=== PATIENT | female | born 1935 | race Caucasian/White ===

== ENCOUNTER 2019-02-26 22:09 | Inpatient (IN) | payer MEDICARE, OTHER ==
[~2019-02-26] VITALS: Ht 167.6 cm; Wt 61.5 kg
--- NOTE | 2019-02-26 22:33 | NUR ---
STROKE [facility] NUMBER [id number].
[2019-02-26 22:45] VITALS: BP 127/62
[2019-02-26 22:58] LABS: CREATINE KINASE 131 UL (21-215); TROPONIN-I < 0.017 ng/mL (0.000-0.060)
[2019-02-26 23:00] VITALS: BP 152/65
[2019-02-26 23:15] VITALS: BP 142/66
[2019-02-26 23:30] VITALS: BP 169/72
--- NOTE | 2019-02-26 23:44 | NUR ---
TITRATED PROPOFOL TO EFFECT AT 15MCG
[2019-02-27] VITALS (23 sets, daily range): BP systolic 103–157; BP diastolic 51–79; Ht 167.6 cm; Wt 61.5 kg
--- NOTE | 2019-02-27 00:20 | NUR ---
PT RECEIVED FROM ER. VSS. REFER TO ASSESSMENT. FAMILY AT BEDSIDE GIVEN UDPATE.
[2019-02-27] MEDS ORDERED: TRILEPTAL600 MG PO (00:21)
[2019-02-27] MEDS ORDERED: TIMOPTIC 0.5 % O5 ML EACH EYE (00:21)
[2019-02-27] MEDS ORDERED: PHENERGAN6.25 MG/5 (00:23)
[2019-02-27] MEDS ORDERED: PROMETH-CODEIN 65 ML PO (00:24)
--- NOTE | 2019-02-27 01:58 | NUR ---
JEREMY CANTRELL AT BEDSIDE NEW ORDERS RECEIVED
--- NOTE | 2019-02-27 03:15 | NUR ---
REASSESSMENT COMELPTE PER FLOW SHEET. VSS. NO NEW CHANGES PT RESTING COMFORTABLY WILL CONTINUE TO MONITOR
[2019-02-27 04:24] LABS: BASOPHILS 0 % (0-2); EOSINOPHILS 0 % (0-7); HEMATOCRIT 41.1 % (36.0-48.0); IMMATURE GRANULOCYTES 0.2 % (0-5); LYMPHOCYTES 6.8 % (15-50); MCH 31.5 pg (26.0-34.0); MCHC 34.1 g/dL (31.0-37.0); MCV 92.6 fL (80.0-100.0); MEAN PLATELET VOLUME 10.5 fL (7.4-10.4); MONOCYTES 3.9 % (2-11); NEUTROPHILS 89.1 % (40-80); PLATELET COUNT 249 10x3/uL (130-400); RBC 4.44 10x6/uL (4.00-5.40); WBC 8.7 10x3/uL (4.8-10.8)
[2019-02-27 04:30] LABS: APTT 25.4 SECONDS (22.8-39.4); INR 1.06 (0.85-1.17); PROTIME 13.3 SECONDS (11.6-15.0)
--- NOTE | 2019-02-27 05:00 | NUR ---
NO NEW CHANGES. PT RESTING COMFORTABLY WLL CONTINUE TO MONITOR
[2019-02-27 05:04] LABS: CALC OSMOLALITY 271 mosm/kg (275-300); CALCIUM 8.7 mg/dL (8.5-10.1); CARBON DIOXIDE 25.6 mmol/L (21.0-32.0); CHLORIDE - SERUM 95 mmol/L (98-107); CKMB 1.2 U/L (0.0-3.6); CREATINE KINASE 107 UL (21-215); GLUCOSE 252 mg/dL (74-106); MAGNESIUM - SERUM 1.8 mg/dL (1.8-2.4); PHENYTOIN (DILANTIN) 14.3 ug/mL (10.0-20.0); PHOSPHOROUS 3.6 mg/dL (2.5-4.9); POTASSIUM - SERUM 3.4 mmol/L (3.5-5.1); SODIUM 131 mmol/L (136-145); UREA NITROGEN 13 mg/dL (7-18); eGFR NON AFRICAN AMERICAN 56 mL/min (90-120)
[2019-02-27 05:09] LABS: TROPONIN-I < 0.017 ng/mL (0.000-0.060)
--- NOTE | 2019-02-27 07:00 | NUR ---
PT RESTING IN BED, PT UNRESPONSIVE. PT HAS DECORTICATE POSTURING. RIGHT PUPIL FIXED AT 3MM, LEFT PUPIL FIXED AT 7MM. PT HAS A GAG REFLEX STILL BUT MILD. BED ALARM ON. WILL CONT TO FOLLOW POC
--- NOTE | 2019-02-27 08:40 | NUR ---
HERE AND SPOKE WITH FAMILY. FAMILY IS ACCEPTING. DENIES ANY NEEDS AT THIS TIME. PT RESTING COMFORTABLE IN BED. BED ALARM ON. WILL CONT TO FOLLOW POC
--- NOTE | 2019-02-27 10:40 | NUR ---
PT RESTING IN BED, VSS AND WNL. FAMILY AT BEDSIDE. NO NEURO CHANGES NOTED. WILL CONT TO FOLLOW POC
--- NOTE | 2019-02-27 12:40 | NUR ---
PT RESTING IN BED, VSS AND WNL. FAMILY AT BEDSIDE, NO NEURO CHANGES NOTED. WILL CONT TO FOLLOW POC
--- NOTE | 2019-02-27 14:32 | NUR ---
PT FAMILY HERE AND STATES THEY WOULD LIKE PT TO BE EXTUBATED. SPOKE WITH KENZIE AND NURSE WAS ADVISED THAT PT DOES NOT MEET CRITERIA FOR LIVE DONATION AND TO CALL BACK ONCE PT HAS . NURSE PAGED AND NEW ORDER GIVEN FOR MORPHINE AND OK TO TERMINALLY EXTUBATE
--- NOTE | 2019-02-27 14:40 | NUR ---
FAMILY AT BEDSIDE DISCUSSING TERMINAL EXTUBATION. WILL CONT TO FOLLOW POC
--- NOTE | 2019-02-27 14:41 | NUR ---
DNR ORDER PLACED INTO COMPUTER AND NOTIFIED.
--- NOTE | 2019-02-27 15:03 | NUR ---
PT TERMINALLY EXTUBATED AT 1503. FAMILY AT BEDSIDE.
--- NOTE | 2019-02-27 16:45 | NUR ---
SPOKE WITH AND NEW ORDER GIVEN TO TRANSFER PT TO FLOOR.
--- NOTE | 2019-02-27 16:54 | NUR ---
REPORT CALLED TO ALANA EPPS ON MED SURG
--- NOTE | 2019-02-27 17:55 | NUR ---
TRANSFERRED FROM ICU TO ROOM 2231 PT REMAIN UNRESPONSIVE. NO PAIN NOTED. FAMILY ONLY WANT COMFORT CARE MEASURE ONLY. C/L AND SON AT BEDSIDE.
[2019-02-28 01:21] VITALS: BP 170/88
--- NOTE | 2019-02-28 03:30 | NUR ---
I have reviewed this patient and I concur with the Shift Assessment completed by the Licensed Practical Nurse today this shift.
[2019-02-28 05:06] VITALS: BP 189/91
[2019-02-28 05:38] LABS: BASOPHILS 0 % (0-2); EOSINOPHILS 0 % (0-7); HEMATOCRIT 39.4 % (36.0-48.0); HEMOGLOBIN 13.1 g/dL (12-16); IMMATURE GRANULOCYTES 0.2 % (0-5); LYMPHOCYTES 6.9 % (15-50); MCH 31.2 pg (26.0-34.0); MCHC 33.2 g/dL (31.0-37.0); MCV 93.8 fL (80.0-100.0); MEAN PLATELET VOLUME 10.6 fL (7.4-10.4); MONOCYTES 12.9 % (2-11); PLATELET COUNT 266 10x3/uL (130-400); RDW 13.5 % (11.5-14.5)
[2019-02-28 06:11] LABS: CALCIUM 8.7 mg/dL (8.5-10.1); CARBON DIOXIDE 24.4 mmol/L (21.0-32.0); CHLORIDE - SERUM 102 mmol/L (98-107); MAGNESIUM - SERUM 1.7 mg/dL (1.8-2.4); POTASSIUM - SERUM 3.4 mmol/L (3.5-5.1); SODIUM 139 mmol/L (136-145); eGFR NON AFRICAN AMERICAN 85 mL/min (90-120)
[2019-02-28 06:54] LABS: CALC OSMOLALITY 281 mosm/kg (275-300); CREATININE - SERUM 0.7 mg/dL (0.6-1.3); GLUCOSE 139 mg/dL (74-106); PHOSPHOROUS 2.4 mg/dL (2.5-4.9); UREA NITROGEN 17 mg/dL (7-18)
[2019-02-28 08:20] VITALS: BP 160/95
--- NOTE | 2019-02-28 08:27 | NUR ---
RESTING IN BED, FAMILY IN ROOM, EYES CLOSED, NO DISTRESS NOTED TELE IN PLACE
--- NOTE | 2019-02-28 09:00 | MORECARE ---
CASE MANAGEMENT DISCHARGE SUMMARY PATIENT: WENDY RAMÍREZ UNIT: [id number] ADM DATE: 02/26/19 AGE: 84 : 36 SEX: F ROOM/BED: D.2231 AUTHOR: NORMA REYEZ PHYSICIAN: REFERRING PHYSICIAN: MARTIN BERRY MD DATE OF SERVICE: 02/28/19 Discharge Plan Patient Name: WENDY RAMÍREZ [facility] [facility] 1935 Planned Disposition: Anticipated Discharge Date: Discharge Date: Expected LOS: Initial Reviewer: [email or web address] Initial Review Date: 02/27/2019 Generated: 02/28/19 10:00 am DCPIA - Discharge Planning Initial Assessment Updated by [email or web address]: Bijal Ferreira on 02/28/19 8:58 am * Is the patient Alert and Oriented? No * How many steps to enter\exit or inside your home? 1-2 * PCP MEGHA RUEDA * [facility] * Preadmission Environment Home Alone * ADLs Independent * Equipment None * List name and contact numbers for known caregivers / representatives who currently or will assist patient after discharge: CHRISTY STAR [phone], * Verbal permission to speak to the caregivers and representatives has been obtained from the patient. N/A * Community resources currently utilized None * Additional services required to return to the preadmission environment? No * Can the patient safely return to the preadmission environment? Yes * Has this patient been hospitalized within the prior 30 days at any hospital? No Patient Name: WENDY RAMÍREZ Page [id number] at 0900 All edits/amendments must be made on the electronic document DICTATION DATE: 02/28/19899 MERCHANDISE SUPPORT ASSOCIATE: SABRINA 02/28/19899 RPT#: [id number] DC DATE: STATUS: ADM IN [facility] [address] [place] [address] END OF REPORT
--- NOTE | 2019-02-28 09:08 | MORECARE ---
CASE MANAGEMENT DISCHARGE SUMMARY PATIENT: WENDY RAMÍREZ UNIT: [id number] ADM DATE: 02/26/19 AGE: 84 : 36 SEX: F ROOM/BED: D.2231 AUTHOR: AISSATOUDOC PHYSICIAN: REFERRING PHYSICIAN: MARTIN BERRY MD DATE OF SERVICE: 02/28/19 Discharge Plan Patient Name: WENDY RAMÍREZ Facility: [facility]:[place] : 1935 Planned Disposition: Anticipated Discharge Date: Discharge Date: Expected LOS: Initial Reviewer: [email or web address] Initial Review Date: 02/27/2019 Generated: 02/28/19 10:07 am Comments DCP- Discharge Planning Updated by [email or web address]: Bijal Ferreira on 02/28/19 8:[address] LATE ENTRY 02/27/19 Patient Name: WENDY RAMÍREZ Admission Status: ER Accout number: [id number] Admission Date: 02-26-2019 : 1935 Admission Diagnosis: Attending: MARTIN TAVRAEZ Current LOS: 2 Anticipated DC Date: Planned Disposition: Primary Insurance: MEDICARE A & B Discharge Planning Comments: CM met with patient's daughter Senait to complete initial dc planning assessment. CM educated patient on the CM role and verbal consent given by patient to complete assessment. Patient lives at home alone where she is independent with her care. Senait stated that once all family arrives they are planning terminal extubation. CM will continue to follow and will assist as needed with dc plans/needs. Lease Picker: Bijal Ferreira DCPIA - Discharge Planning Initial Assessment Updated by [email or web address]: Bijal Ferreira on 02/28/19 8:58 am * Is the patient Alert and Oriented? No * How many steps to enter\exit or inside your home? 1-2 * PCP MEGHA RUEDA * [facility] * Preadmission Environment Home Alone * ADLs Independent * Equipment None * List name and contact numbers for known caregivers / representatives who currently or will assist patient after discharge: SENAIT STAR [phone], * Verbal permission to speak to the caregivers and representatives has been obtained from the patient. N/A * Community resources currently utilized None * Additional services required to return to the preadmission environment? No * Can the patient safely return to the preadmission environment? Yes * Has this patient been hospitalized within the prior 30 days at any hospital? No Last DP export: 02/28/19 8:00 Patient Name: WENDY RAMÍREZ Page [id number] at 0908 All edits/amendments must be made on the electronic document DICTATION DATE: 02/28/19906 SERVICE OPERATOR: SABRINA 02/28/19906 RPT#: [id number] DC DATE: STATUS: ADM IN [facility] [address] [place] [address] END OF REPORT
[2019-02-28 13:41] VITALS: BP 145/91
--- NOTE | 2019-02-28 15:39 | MORECARE ---
CASE MANAGEMENT DISCHARGE SUMMARY PATIENT: WENDY GONZALEZ UNIT: [id number] ADM DATE: 02/26/19 AGE: 84 : 36 SEX: F ROOM/BED: D.2231 AUTHOR: NORMA REYEZ PHYSICIAN: REFERRING PHYSICIAN: MARTIN BERRY MD DATE OF SERVICE: 02/28/19 Discharge Plan Patient Name: WENDY GONZALEZ Facility: [facility]:[place] : 1935 Planned Disposition: Anticipated Discharge Date: Discharge Date: Expected LOS: Initial Reviewer: [email or web address] Initial Review Date: 02/27/2019 Generated: 02/28/19 4:38 pm Comments DCP- Discharge Planning Updated by [email or web address]: Chloe Marie on 02/28/19 2:[address] CM met with patient's son, Herminio Gonzalez, in the room to discuss hospice. He states that he and his siblings were discussing hospice and they weren't sure what they needed. I gave him a list of hospice agencies and informed him that [facility] had a contract with [facility] if she met inpatient criteria and they wanted her to stay here. He states that if she only has a few days left, he would like her to stay here otherwise he would like to see if she could go back to [place]. I offered to call any hospice agency to speak with him and he would like to discuss the options with his siblings first. CM will continue to follow and assist with discharge planning/needs. Herminio Gonzalez - [phone] DCP- Discharge Planning Updated by [email or web address]: Bijal Ferreira on 02/28/19 8:[address] LATE ENTRY 02/27/19 Patient Name: WENDY GONZALEZ Admission Status: ER Accout number: [id number] Admission Date: 02-26-2019 : 1935 Admission Diagnosis: Attending: MARTIN TAVAREZ Current LOS: 2 Anticipated DC Date: Planned Disposition: Primary Insurance: MEDICARE A & B Discharge Planning Comments: CM met with patient's daughter Senait to complete initial dc planning assessment. CM educated patient on the CM role and verbal consent given by patient to complete assessment. Patient lives at home alone where she is independent with her care. Senait stated that once all family arrives they are planning terminal extubation. CM will continue to follow and will assist as needed with dc plans/needs. Foreign Banknote Teller Trader: Bijal Ferreira DCPIA - Discharge Planning Initial Assessment Updated by [email or web address]: Bijal Ferreira on 02/28/19 8:58 am * Is the patient Alert and Oriented? No * How many steps to enter\exit or inside your home? 1-2 * PCP MEGHA RUEDA * [facility] * Preadmission Environment Home Alone * ADLs Independent * Equipment None * List name and contact numbers for known caregivers / representatives who currently or will assist patient after discharge: SENAIT GRAVES - [phone], * Verbal permission to speak to the caregivers and representatives has been obtained from the patient. N/A * Community resources currently utilized None * Additional services required to return to the preadmission environment? No * Can the patient safely return to the preadmission environment? Yes * Has this patient been hospitalized within the prior 30 days at any hospital? No Last DP export: 02/28/19 8:08 Patient Name: WENDY GONZALEZ Page [id number] at 1539 All edits/amendments must be made on the electronic document DICTATION DATE: 02/28/191537 DISTILLING DEPARTMENT SUPERVISOR: SABRINA 02/28/191537 RPT#: [id number] DC DATE: STATUS: ADM IN [facility] [address] [place] [address] END OF REPORT
[2019-02-28 17:14] VITALS: BP 138/95
--- NOTE | 2019-02-28 17:23 | MORECARE ---
CASE MANAGEMENT DISCHARGE SUMMARY PATIENT: WENDY GONZALEZ UNIT: [id number] ADM DATE: 02/26/19 AGE: 84 : 36 SEX: F ROOM/BED: D.2231 AUTHOR: NORMA REYEZ PHYSICIAN: REFERRING PHYSICIAN: MARTIN BERRY MD DATE OF SERVICE: 02/28/19 Discharge Plan Patient Name: WENDY GONZALEZ [facility]:[place] : 1935 Planned Disposition: Anticipated Discharge Date: Discharge Date: Expected LOS: Initial Reviewer: [email or web address] Initial Review Date: 02/27/2019 Generated: 02/28/19 6:23 pm Comments DCP- Discharge Planning Updated by [email or web address]: Chloe Marie on 02/28/19 2:[address] CM met with patient's son, Herminio Gonzalez, in the room to discuss hospice. He states that he and his siblings were discussing hospice and they weren't sure what they needed. I gave him a list of hospice agencies and informed him that [facility] had a contract with [facility] if she met inpatient criteria and they wanted her to stay here. He states that if she only has a few days left, he would like her to stay here otherwise he would like to see if she could go back to [place]. I offered to call any hospice agency to speak with him and he would like to discuss the options with his siblings first. CM will continue to follow and assist with discharge planning/needs. Herminio Gonzalez - [phone] DCP- Discharge Planning Updated by [email or web address]: Bijal Ferreira on 02/28/19 8:[address] LATE ENTRY 02/27/19 Patient Name: WENDY GONZALEZ Admission Status: ER Accout number: [id number] Admission Date: 02-26-2019 : 1935 Admission Diagnosis: Attending: MARTIN TAVAREZ Current LOS: 2 Anticipated DC Date: Planned Disposition: Primary Insurance: MEDICARE A & B Discharge Planning Comments: CM met with patient's daughter Senait to complete initial dc planning assessment. CM educated patient on the CM role and verbal consent given by patient to complete assessment. Patient lives at home alone where she is independent with her care. Senait stated that once all family arrives they are planning terminal extubation. CM will continue to follow and will assist as needed with dc plans/needs. Security System Analyst: Bijal Ferreira DCPIA - Discharge Planning Initial Assessment Updated by [email or web address]: Bijal Ferreira on 02/28/19 8:58 am * Is the patient Alert and Oriented? No * How many steps to enter\exit or inside your home? 1-2 * PCP MEGHA RUEDA * [facility] * Preadmission Environment Home Alone * ADLs Independent * Equipment None * List name and contact numbers for known caregivers / representatives who currently or will assist patient after discharge: SENAIT GRAVES - [phone], * Verbal permission to speak to the caregivers and representatives has been obtained from the patient. N/A * Community resources currently utilized None * Additional services required to return to the preadmission environment? No * Can the patient safely return to the preadmission environment? Yes * Has this patient been hospitalized within the prior 30 days at any hospital? No External Providers External Provider: [facility](provides inp Next Contact Date: Service Request Date: Service Type: Resolution: Reviewer: Comments: Coverage Notice Reviewer: [email or web address] Shae Marie Notice Issued Date-Time: 02/28/2019 17:21 Notice Type: Patient Choice Letter Notice Delivered To: Family Member Relationship to Patient: Daughter in Law Rn Perinatal Name: Silvia Gonzalez Delivery Method: HAND - Hand Delivered Christelle Days: Prior Verbal Notification: Recipient Understood Notice: Yes Recipient Signature: Yes Med Rec Note Co-signed by Attending: Coverage Notice Comment: DARIUS for [facility] Last DP export: 02/28/19 2:39 Patient Name: WENDY GONZALEZ Page [phone] at 1723 All edits/amendments must be made on the electronic document DICTATION DATE: 02/28/191722 RESIDENTIAL PROGRAM DIRECTOR: SABRINA 02/28/191722 RPT#: [id number] DC DATE: STATUS: ADM IN [facility] [address] [place] [address] END OF REPORT
--- NOTE | 2019-02-28 17:32 | MORECARE ---
CASE MANAGEMENT DISCHARGE SUMMARY PATIENT: WENDY GONZALEZ UNIT: [id number] ADM DATE: 02/26/19 AGE: 84 : 36 SEX: F ROOM/BED: D.2231 AUTHOR: NORMA REYEZ PHYSICIAN: REFERRING PHYSICIAN: MARTIN BERRY MD DATE OF SERVICE: 02/28/19 Discharge Plan Patient Name: WENDY GONZALEZ Facility: [facility]:[place] : 1935 Planned Disposition: Anticipated Discharge Date: Discharge Date: Expected LOS: Initial Reviewer: [email or web address] Initial Review Date: 02/27/2019 Generated: 02/28/19 6:31 pm Comments DCP- Discharge Planning Updated by [email or web address]: Chloe Marie on 02/28/19 4:[address] CM met again with patient's son and his , Silvia Gonzalez. They spoke on the phone with patient's other son and they would like to admit her to hospice tonight. They would like to know if she can go to [facility] on hospice. I called and spoke to the nursing supervisor real estate office and they do not do inpatient hospice at their facility, but she can go to [facility] for hospice. I spoke to Sandy at [facility] and they have all hospice agencies come to their facility. I spoke with the family again and they do not want to go to a long-term for hospice. Her family states they would like her to stay here. DARIUS for [facility] signed. I called and spoke to the production troubleshooter nurse, Whitney Hurst, and she will come tonight and evaluate and admit the patient if appropriate. CM will continue to follow and assist with discharge planning/needs. DCP- Discharge Planning Updated by [email or web address]: Chloe Marie on 02/28/19 2:[address] CM met with patient's son, Herminio Gonzalez, in the room to discuss hospice. He states that he and his siblings were discussing hospice and they weren't sure what they needed. I gave him a list of hospice agencies and informed him that [facility] had a contract with [facility] if she met inpatient criteria and they wanted her to stay here. He states that if she only has a few days left, he would like her to stay here otherwise he would like to see if she could go back to [place]. I offered to call any hospice agency to speak with him and he would like to discuss the options with his siblings first. CM will continue to follow and assist with discharge planning/needs. Herminio Gonzalez - [phone] DCP- Discharge Planning Updated by [email or web address]: Bijal Ferreira on 02/28/19 8:[address] LATE ENTRY 02/27/19 Patient Name: WENDY GONZALEZ Admission Status: ER Accout number: [id number] Admission Date: 02-26-2019 : 1935 Admission Diagnosis: Attending: MARTIN TAVAREZ Current LOS: 2 Anticipated DC Date: Planned Disposition: Primary Insurance: MEDICARE A & B Discharge Planning Comments: CM met with patient's daughter Christy to complete initial dc planning assessment. CM educated patient on the CM role and verbal consent given by patient to complete assessment. Patient lives at home alone where she is independent with her care. Christy stated that once all family arrives they are planning terminal extubation. CM will continue to follow and will assist as needed with dc plans/needs. Rn Patient Services: Bijal Jhon DCPIA - Discharge Planning Initial Assessment Updated by [email or web address]: Bijal Jhon on 02/28/19 8:58 am * Is the patient Alert and Oriented? No * How many steps to enter\exit or inside your home? 1-2 * PCP MEGHA [facility] * [facility] * Preadmission Environment Home Alone * ADLs Independent * Equipment None * List name and contact numbers for known caregivers / representatives who currently or will assist patient after discharge: CHRISTY STAR - [phone], * Verbal permission to speak to the caregivers and representatives has been obtained from the patient. N/A * Community resources currently utilized None * Additional services required to return to the preadmission environment? No * Can the patient safely return to the preadmission environment? Yes * Has this patient been hospitalized within the prior 30 days at any hospital? No Coverage Notice Reviewer: [email or web address] - Chloe Marie Notice Issued Date-Time: 02/28/2019 17:21 Notice Type: Patient Choice Letter Notice Delivered To: Family Member Relationship to Patient: Daughter in Law Emulsion Operator Name: Silvia Gonzalez Delivery Method: HAND - Hand Delivered Christelle Days: Prior Verbal Notification: Recipient Understood Notice: Yes Recipient Signature: Yes Med Rec Note Co-signed by Attending: Coverage Notice Comment: DARIUS for [facility] Last DP export: 02/28/19 4:23 Patient Name: WENDY GONZALEZ Page [id number] at 1732 All edits/amendments must be made on the electronic document DICTATION DATE: 02/28/191730 RHIC SYSTEMS SAFETY ENGINEER: SABRINA 02/28/191730 RPT#: [id number] DC DATE: STATUS: ADM IN [facility] [address] [place] [address] END OF REPORT
--- NOTE | 2019-02-28 19:27 | NUR ---
TURNED PER STAFF, ORAL CARE PROVIDED, JAI GRADY AT [facility], ADDRESS LOW K AND MAG TODAY, PASSED ON ABOUT LOW PHOS, HOSPICE TO COME
[2019-02-28 19:30] VITALS: BP 151/73
--- NOTE | 2019-03-01 03:07 | NUR ---
I have reviewed this patient and I concur with the Shift Assessment completed by the Licensed Practical Nurse today this shift.
--- NOTE | 2019-03-01 07:10 | NUR ---
PT RESTING IN BED. IV TO LEFT FORARM PATENT NO REDNESS OR TENDERNESS. ON 2L NC. HAS MOISE NO KINKS PATENT. DENIES ANY FURTHER NEED AT THIS TIME. CALL LIGHT IN REACH. BED LOW POSITION. FAMILY AT BEDSIDE.
[2019-03-01 09:21] VITALS: BP 176/59
--- NOTE | 2019-03-01 11:45 | MORECARE ---
CASE MANAGEMENT DISCHARGE SUMMARY PATIENT: WENDY GONZALEZ UNIT: [id number] ADM DATE: 02/26/19 AGE: 84 : 36 SEX: F ROOM/BED: D.2231 AUTHOR: NORMA REYEZ PHYSICIAN: REFERRING PHYSICIAN: MARTIN BERRY MD DATE OF SERVICE: 03/01/19 Discharge Plan Patient Name: WENDY GONZALEZ Facility: [facility]:[place] : 1935 Planned Disposition: Anticipated Discharge Date: Discharge Date: Expected LOS: Initial Reviewer: [email or web address] Initial Review Date: 02/27/2019 Generated: 03/01/19 12:45 pm Comments DCP- Discharge Planning Updated by [email or web address]: Chloe Cynthia on 03/01/19 10:[address] Received a call from Beverley with [facility] that states the helper driver is almost to the patient's house to deliver DME and we can call for the ambulance. I informed patient's son, Brooks, he is in the room, admission nurse coordinator and primary nurse (Rachel). She will discharge home with [facility]. Ambulance to transport. DCP- Discharge Planning Updated by [email or web address]: Chloe Cynthia on 02/28/19 4:[address] CM met again with patient's son and his , Silvia Gonzalez. They spoke on the phone with patient's other son and they would like to admit her to hospice tonight. They would like to know if she can go to [facility] on hospice. I called and spoke to the nursing wet room supervisor and they do not do inpatient hospice at their facility, but she can go to [facility] for hospice. I spoke to Sandy at [facility] and they have all hospice agencies come to their facility. I spoke with the family again and they do not want to go to a long term for hospice. Her family states they would like her to stay here. DARIUS for [facility] signed. I called and spoke to the energy economist nurse, Whitney Hurst, and she will come tonight and evaluate and admit the patient if appropriate. CM will continue to follow and assist with discharge planning/needs. DCP- Discharge Planning Updated by [id number]: Chloe Marie on 02/28/19 2:[address] CM met with patient's son, Herminio Gonzalez, in the room to discuss hospice. He states that he and his siblings were discussing hospice and they weren't sure what they needed. I gave him a list of hospice agencies and informed him that [facility] had a contract with [facility] if she met inpatient criteria and they wanted her to stay here. He states that if she only has a few days left, he would like her to stay here otherwise he would like to see if she could go back to [place]. I offered to call any hospice agency to speak with him and he would like to discuss the options with his siblings first. CM will continue to follow and assist with discharge planning/needs. Herminio Gonzalez - [phone] DCP- Discharge Planning Updated by [id number]: Bijal Ferreira on 02/28/19 8:[address] LATE ENTRY 02/27/19 Patient Name: WENDY GONZALEZ Admission Status: ER Accout number: [id number] Admission Date: 02-26-2019 : 1935 Admission Diagnosis: Attending: MARTIN TAVAREZ Current LOS: 2 Anticipated DC Date: Planned Disposition: Primary Insurance: MEDICARE A & B Discharge Planning Comments: CM met with patient's daughter Christy to complete initial dc planning assessment. CM educated patient on the CM role and verbal consent given by patient to complete assessment. Patient lives at home alone where she is independent with her care. Christy stated that once all family arrives they are planning terminal extubation. CM will continue to follow and will assist as needed with dc plans/needs. Flat Spring Assembler: Bijal Ferreira DCPIA - Discharge Planning Initial Assessment Updated by [email or web address]: Bijal Ferreira on 02/28/19 8:58 am * Is the patient Alert and Oriented? No * How many steps to enter\exit or inside your home? 1-2 * PCP MEG[facility] * [facility]acy [facility] * Preadmission Environment Home Alone * ADLs Independent * Equipment None * List name and contact numbers for known caregivers / representatives who currently or will assist patient after discharge: CHRISTY STAR - [phone], * Verbal permission to speak to the caregivers and representatives has been obtained from the patient. N/A * Community resources currently utilized None * Additional services required to return to the preadmission environment? No * Can the patient safely return to the preadmission environment? Yes * Has this patient been hospitalized within the prior 30 days at any hospital? No Coverage Notice Reviewer: [id number] Shae Marie Notice Issued Date-Time: 02/28/2019 17:21 Notice Type: Patient Choice Letter Notice Delivered To: Family Member Relationship to Patient: Daughter in Law Measurement Specialist Name: Silvia Gonzalez Delivery Method: HAND - Hand Delivered Christelle Days: Prior Verbal Notification: Recipient Understood Notice: Yes Recipient Signature: Yes Med Rec Note Co-signed by Attending: Coverage Notice Comment: [facility] Last DP export: 02/28/19 4:32 Patient Name: WENDY GONZALEZ Page [id number] at 1145 All edits/amendments must be made on the electronic document DICTATION DATE: 03/01/19 1145 FISHING VESSEL CAPTAIN: SABRINA 03/01/19 1145 RPT#: [id number] DC DATE: STATUS: ADM IN [facility] [address] [place] [address] END OF REPORT
--- NOTE | 2019-03-01 12:31 | NUR ---
I have reviewed this patient and I concur with the Shift Assessment completed by the Licensed Practical Nurse today this shift.
--- NOTE | 2019-03-01 16:02 | NUR ---
DISCHARGE INSTRUCTIONS GIVEN TO SON. SEEMS TO UNDERSTAND INSTRCUTIONS. MOISE LEFT IV OUT TIP INTACT. ON 2L NC. LEFT WITH EMS TO GO HOME TO HOSPICE.
--- NOTE | 2019-03-04 14:00 | MORECARE ---
CASE MANAGEMENT DISCHARGE SUMMARY PATIENT: WENDY GONZALEZ UNIT: [id number] ADM DATE: 02/26/19 AGE: 84 : 36 SEX: F ROOM/BED: D.2231 AUTHOR: NORMA REYEZ PHYSICIAN: REFERRING PHYSICIAN: MARTIN BERRY MD DATE OF SERVICE: 03/04/19 Discharge Plan Patient Name: WENDY GONZALEZ Facility: [facility]:[place] : 1935 Planned Disposition: Anticipated Discharge Date: Discharge Date: 03/01/2019 Expected LOS: Initial Reviewer: [email or web address] Initial Review Date: 02/27/2019 Generated: 03/04/19 3:00 pm Comments DCP- Discharge Planning Updated by [email or web address]: Chloe Cynthia on 03/01/19 10:[address] Received a call from Beverley with [facility] that states the limo driver is almost to the patient's house to deliver DME and we can call for the ambulance. I informed patient's son, Brooks, he is in the room, international coordinator and primary nurse (Rachel). She will discharge home with [facility]. Ambulance to transport. DCP- Discharge Planning Updated by [id number]: Chloe Cynthia on 02/28/19 4:[address] CM met again with patient's son and his , Silvia Gonzalez. They spoke on the phone with patient's other son and they would like to admit her to hospice tonight. They would like to know if she can go to [facility] on hospice. I called and spoke to the nursing supervisor firearms and they do not do inpatient hospice at their facility, but she can go to [facility] for hospice. I spoke to Sandy at [facility] and they have all hospice agencies come to their facility. I spoke with the family again and they do not want to go to a long term for hospice. Her family states they would like her to stay here. D[facility] for [facility] signed. I called and spoke to the automation tester nurse, Whitney Hurst, and she will come tonight and evaluate and admit the patient if appropriate. CM will continue to follow and assist with discharge planning/needs. DCP- Discharge Planning Updated by [email or web address]: Chloe Marie on 02/28/19 2:[address] CM met with patient's son, Herminio Gonzalez, in the room to discuss hospice. He states that he and his siblings were discussing hospice and they weren't sure what they needed. I gave him a list of hospice agencies and informed him that [facility] had a contract with [facility] if she met inpatient criteria and they wanted her to stay here. He states that if she only has a few days left, he would like her to stay here otherwise he would like to see if she could go back to [place]. I offered to call any hospice agency to speak with him and he would like to discuss the options with his siblings first. CM will continue to follow and assist with discharge planning/needs. Herminio Gonzalez - [phone] DCP- Discharge Planning Updated by [email or web address]: Bijal Ferreira on 02/28/19 8:[address] LATE ENTRY 02/27/19 Patient Name: WENDY GONZALEZ Admission Status: ER Accout number: [id number] Admission Date: 02-26-2019 : 1935 Admission Diagnosis: Attending: MARTIN TAVAREZ Current LOS: 2 Anticipated DC Date: Planned Disposition: Primary Insurance: MEDICARE A & B Discharge Planning Comments: CM met with patient's daughter Christy to complete initial dc planning assessment. CM educated patient on the CM role and verbal consent given by patient to complete assessment. Patient lives at home alone where she is independent with her care. Christy stated that once all family arrives they are planning terminal extubation. CM will continue to follow and will assist as needed with dc plans/needs. Cashier Self Service Gasoline: Bijal Ferreira DCPIA - Discharge Planning Initial Assessment Updated by [id number]: Bijal Ferreira on 02/28/19 8:58 am * Is the patient Alert and Oriented? No * How many steps to enter\exit or inside your home? 1-2 * PCP [facility] * [facility]acy [facility] * Preadmission Environment Home Alone * ADLs Independent * Equipment None * List name and contact numbers for known caregivers / representatives who currently or will assist patient after discharge: CHRISTY STAR - [phone], * Verbal permission to speak to the caregivers and representatives has been obtained from the patient. N/A * Community resources currently utilized None * Additional services required to return to the preadmission environment? No * Can the patient safely return to the preadmission environment? Yes * Has this patient been hospitalized within the prior 30 days at any hospital? No Coverage Notice Reviewer: [id number] Shae Marie Notice Issued Date-Time: 02/28/2019 17:21 Notice Type: Patient Choice Letter Notice Delivered To: Family Member Relationship to Patient: Daughter in Law Senior Premium Auditor Name: Silvia Gonzalez Delivery Method: HAND - Hand Delivered Christelle Days: Prior Verbal Notification: Recipient Understood Notice: Yes Recipient Signature: Yes Med Rec Note Co-signed by Attending: Coverage Notice Comment: [facility] Last DP export: 03/01/19 10:45 Patient Name: WENDY GONZALEZ Page [id number] at 1400 All edits/amendments must be made on the electronic document DICTATION DATE: 03/04/19 1400 COMMISSION SPECIALIST: SABRINA 03/04/19 1400 RPT#: [id number] DC DATE:03/01/19 STATUS: DIS IN [facility] [address] [place] [address] END OF REPORT
== END 2019-03-01 16:03 | disposition home health service (06) | DRG 64 ==
LOC: D.ER 22:09 → D.ICU 22:35 → D.MS 22:35 → D.ICU 02-27 07:19 → D.MS 02-27 17:22
PROVIDERS: Emergency Medicine; ADMIT Family Medicine; ATTEND Family Medicine
PROC: 5A1935Z Respiratory Ventilation, Less than 24 Consecutive Hours (ICD-10-PCS; principal; 2019-02-27)
DX: I61.1 Nontraumatic intracerebral hemorrhage in hemisphere, cortical (principal); J96.00 Acute respiratory failure, unspecified whether with hypoxia or hypercapnia; E87.1 Hypo-osmolality and hyponatremia; E87.6 Hypokalemia; R40.2333 Coma scale, best motor response, abnormal flexion, at hospital admission; R40.2213 Coma scale, best verbal response, none, at hospital admission; R40.2113 Coma scale, eyes open, never, at hospital admission; R73.9 Hyperglycemia, unspecified; I10 Essential (primary) hypertension